=== PATIENT | male | born 1960 | race Caucasian/White ===

== ENCOUNTER 2019-04-12 21:22 | Observation (INO) | payer BC ==
--- NOTE | 2019-04-12 21:46 | ED ---
Syncope HPI - General Chief Complaint: Syncope Stated Complaint: Syncope Time Seen by Provider: 04/12/19 21:27 Source: patient Mode of arrival: EMS - History of Present Illness Initial Comments: This patient is a 58-year-old man who presents to be evaluated after syncopal episode tonight. Patient states that he had been feeling like his usual self today. [place] the [place] and also had a few beers to drink. He had then gone to change his clothes and noticed that when he was walking he felt lightheaded. The patient went and rested and then passed out briefly. He did not have palpitations. He has not had chest pain or dyspnea. The episode was witnessed and there was no tonic-clonic or shaking movements. No postictal period. The patient states he is at his baseline now but does feel a bit thirsty. He did not have any injury. MD Complaint: loss of consciousness -: minutes(s) Prodromal Symptoms: lightheaded -: second(s) Witnessed: yes - by bystander Injuries Sustained Associated with Event: None Current Symptoms: back to baseline History: previous syncopal episode Treatments Prior to Arrival: IV fluids - Related Data Home Medications Medication Instructions Recorded Confirmed ALPRAZolam [Xanax] 0.125 - 0.25 mg PO BID PRN 04/12/19 04/12/19 Acetaminophen Tab [Tylenol Tab] 500 mg PO Q6H PRN 04/12/19 04/12/19 Ibuprofen [Motrin Ib] 200 mg PO Q6H PRN 04/12/19 04/12/19 Multivitamins, Thera [Multivitamin 1 tab PO DAILY 04/12/19 04/12/19 (formulary)] Omeprazole 20 mg PO DAILY 04/12/19 04/12/19 Allergies Allergy/AdvReac Type Severity Reaction Status Date / Time No Known Allergies Allergy Verified 04/12/19 22:09 Review of Systems ROS Statement: Those systems with pertinent positive or pertinent negative responses have been documented in the HPI. ROS Other: All systems not noted in ROS Statement are negative. Constitutional: Denies: fever, weakness Respiratory: Denies: cough, dyspnea Cardiovascular: Reports: syncope. Denies: chest pain, palpitations, edema Gastrointestinal: Denies: abdominal pain, nausea, vomiting Genitourinary: Denies: dysuria, hematuria Musculoskeletal: Denies: back pain Skin: Denies: rash Neurological: Denies: headache, weakness, numbness Past Medical History Additional Past Medical History / Comment(s): vasovagal syndrome History of Any Multi-Drug Resistant Organisms: None Reported Past Surgical History: Cholecystectomy, Tonsillectomy Past Psychological History: Anxiety Smoking Status: Never smoker Past Alcohol Use History: Occasional Past Drug Use History: None Reported General Exam General appearance: alert, in no apparent distress Head exam: Present: atraumatic, normocephalic Eye exam: Present: normal appearance, PERRL, EOMI. Absent: scleral icterus, conjunctival injection, nystagmus ENT exam: Present: mucous membranes dry Neck exam: Present: normal inspection Respiratory exam: Present: normal lung sounds bilaterally. Absent: respiratory distress, wheezes, rales, rhonchi, stridor Cardiovascular Exam: Present: regular rate, normal rhythm, normal heart sounds. Absent: systolic murmur, diastolic murmur, rubs, gallop GI/Abdominal exam: Present: soft. Absent: distended, tenderness, guarding, rebound, rigid Extremities exam: Present: normal inspection, normal capillary refill. Absent: pedal edema, calf tenderness Back exam: Present: normal inspection Neurological exam: Present: alert, oriented X3. Absent: motor sensory deficit Skin exam: Present: warm, dry, intact, normal color. Absent: rash Course Vital Signs 04/12/19 04/12/19 21:27 22:40 Temperature 97.9 F Pulse Rate 80 Pulse Rate [ 84 Sitting] Pulse Rate [ 90 Standing] Pulse Rate [ 86 Supine] Respiratory 18 Rate Blood Pressure 128/90 Blood Pressure 116/74 [Left Arm Supine] Blood Pressure 125/73 [Sitting] Blood Pressure 126/60 [Standing] O2 Sat by Pulse 97 Oximetry EKG Findings - EKG Results: EKG: interpreted by ERMD, sinus rhythm (With sinus arrhythmia, rate 74 bpm), normal axis, normal QRS, normal ST/T Medical Decision Making - Lab Data Result diagrams: 04/12/19 22:15 04/12/19 22:15 Lab Results 04/12/19 04/12/19 04/12/19 Range/Units 22:15 22:15 22:15 WBC 14.4 H (3.8-10.6) k/uL RBC 4.75 (4.30-5.90) m/uL Hgb 14.4 (13.0-17.5) gm/dL Hct 42.0 (39.0-53.0) % MCV 88.5 (80.0-100.0) fL MCH 30.2 (25.0-35.0) pg MCHC 34.2 (31.0-37.0) g/dL RDW 13.0 (11.5-15.5) % Plt Count 223 (150-450) k/uL Neutrophils % 86 % Lymphocytes % 11 % Monocytes % 2 % Eosinophils % 1 % Basophils % 0 % Neutrophils # 12.4 H (1.3-7.7) k/uL Lymphocytes # 1.6 (1.0-4.8) k/uL Monocytes # 0.3 (0-1.0) k/uL Eosinophils # 0.1 (0-0.7) k/uL Basophils # 0.0 (0-0.2) k/uL PT 11.2 (9.0-12.0) sec INR 1.1 (<1.2) APTT 22.1 (22.0-30.0) sec D-Dimer 0.26 (<0.60) mg/L FEU Sodium 140 (137-145) mmol/L Potassium 4.3 (3.5-5.1) mmol/L Chloride 104 (98-107) mmol/L Carbon Dioxide 26 (22-30) mmol/L Anion Gap 10 mmol/L BUN 17 (9-20) mg/dL Creatinine 1.07 (0.66-1.25) mg/dL Est GFR (CKD-EPI)AfAm 88 (>60 ml/min/1.73 sqM) Est GFR (CKD-EPI)NonAf 76 (>60 ml/min/1.73 sqM) Glucose 148 H (74-99) mg/dL Calcium 9.4 (8.4-10.2) mg/dL Total Bilirubin 0.6 (0.2-1.3) mg/dL AST 27 (17-59) U/L ALT 46 (21-72) U/L Alkaline Phosphatase 71 (38-126) U/L Troponin I (0.000-0.034) ng/mL Total Protein 6.8 (6.3-8.2) g/dL Albumin 4.4 (3.5-5.0) g/dL Urine Color Urine Appearance (Clear) Urine pH (5.0-8.0) Ur Specific [place] (1.001-1.035) Urine Protein (Negative) Urine Glucose (UA) (Negative) Urine Ketones (Negative) Urine Blood (Negative) Urine Nitrite (Negative) Urine Bilirubin (Negative) Urine Urobilinogen (<2.0) mg/dL Ur Leukocyte Esterase (Negative) 04/12/19 04/12/19 Range/Units 22:15 23:00 WBC (3.8-10.6) k/uL RBC (4.30-5.90) m/uL Hgb (13.0-17.5) gm/dL Hct (39.0-53.0) % MCV (80.0-100.0) fL MCH (25.0-35.0) pg MCHC (31.0-37.0) g/dL RDW (11.5-15.5) % Plt Count (150-450) k/uL Neutrophils % % Lymphocytes % % Monocytes % % Eosinophils % % Basophils % % Neutrophils # (1.3-7.7) k/uL Lymphocytes # (1.0-4.8) k/uL Monocytes # (0-1.0) k/uL Eosinophils # (0-0.7) k/uL Basophils # (0-0.2) k/uL PT (9.0-12.0) sec INR (<1.2) APTT (22.0-30.0) sec D-Dimer (<0.60) mg/L FEU Sodium (137-145) mmol/L Potassium (3.5-5.1) mmol/L Chloride (98-107) mmol/L Carbon Dioxide (22-30) mmol/L Anion Gap mmol/L BUN (9-20) mg/dL Creatinine (0.66-1.25) mg/dL Est GFR (CKD-EPI)AfAm (>60 ml/min/1.73 sqM) Est GFR (CKD-EPI)NonAf (>60 ml/min/1.73 sqM) Glucose (74-99) mg/dL Calcium (8.4-10.2) mg/dL Total Bilirubin (0.2-1.3) mg/dL AST (17-59) U/L ALT (21-72) U/L Alkaline Phosphatase (38-126) U/L Troponin I 0.027 (0.000-0.034) ng/mL Total Protein (6.3-8.2) g/dL Albumin (3.5-5.0) g/dL Urine Color Yellow Urine Appearance Clear (Clear) Urine pH 6.5 (5.0-8.0) Ur Specific [place] 1.011 (1.001-1.035) Urine Protein Negative (Negative) Urine Glucose (UA) Negative (Negative) Urine Ketones Negative (Negative) Urine Blood Negative (Negative) Urine Nitrite Negative (Negative) Urine Bilirubin Negative (Negative) Urine Urobilinogen <2.0 (<2.0) mg/dL Ur Leukocyte Esterase Negative (Negative) Disposition Clinical Impression: Syncope Disposition: ADMITTED IP TO THIS HOSP Condition: Good Is patient prescribed a controlled substance at d/c from ED?: No Referrals: Osmel Schaeffer MD [Primary Care Provider] - 1-2 days
[2019-04-12] MEDS ORDERED: SODIUM CHLORIDE 0.9% 1,000 ML IV STA (21:58)
[2019-04-12 22:36] LABS: Basophils % (A) 0 %; Eosinophils # (A) 0.1 k/uL (0-0.7); Eosinophils % (A) 1 %; HGB 14.4 gm/dL (13.0-17.5); Lymphocytes # (A) 1.6 k/uL (1.0-4.8); Lymphocytes % (A) 11 %; MCH 30.2 pg (25.0-35.0); MCHC 34.2 g/dL (31.0-37.0); MCV 88.5 fL (80.0-100.0); Mean Platelet Volume 7.9; Monocytes # (A) 0.3 k/uL (0-1.0); Monocytes % (A) 2 %; Neutrophils # (A) 12.4 k/uL (1.3-7.7); Neutrophils % (A) 86 %; Platelet Count 223 k/uL (150-450); RBC 4.75 m/uL (4.30-5.90); WBC 14.4 k/uL (3.8-10.6)
[2019-04-12 22:45] LABS: Albumin 4.4 g/dL (3.5-5.0); Calcium 9.4 mg/dL (8.4-10.2); Potassium 4.3 mmol/L (3.5-5.1); Total Bilirubin 0.6 mg/dL (0.2-1.3); Total Protein 6.8 g/dL (6.3-8.2)
--- NOTE | 2019-04-12 22:48 | XR ---
EXAM: XR Chest, 1 View CLINICAL HISTORY: syncope TECHNIQUE: Frontal view of the chest. COMPARISON: No relevant prior studies available. FINDINGS: Lungs: Unremarkable. No consolidation. Pleural space: Unremarkable. No pneumothorax. Heart: Unremarkable. No cardiomegaly. Mediastinum: Unremarkable. Bones/joints: Unremarkable. IMPRESSION: Unremarkable single view the chest
[2019-04-12 22:59] LABS: D-Dimer 0.26 mg/L FEU (<0.60); INR 1.1 (<1.2); Partial Thromboplastin Time 22.1 sec (22.0-30.0); Prothrombin Time 11.2 sec (9.0-12.0)
[2019-04-12 23:45] LABS: Appearance,Urine Clear (Clear); Bilirubin,Urine Negative (Negative); Blood,Urine Negative (Negative); Color,Urine Yellow; Glucose,Urine (UA) Negative (Negative); Ketones,Urine Negative (Negative); Leukocyte Esterase,Urine Negative (Negative); Nitrite,Urine Negative (Negative); PH, Urine 6.5 (5.0-8.0); Protein,Urine Negative (Negative); Specific Gravity,Urine 1.011 (1.001-1.035); Urobilinogen,Urine <2.0 mg/dL (<2.0)
[2019-04-13] MEDS ORDERED: NITROGLYCERIN SL TABS 0.4 MG TAB SUBLINGUAL PRN (01:05)
[2019-04-13] MEDS ORDERED: ALPRAZolam 0.25 MG TAB PO PRN (01:37)
--- NOTE | 2019-04-13 11:39 | CT ---
EXAMINATION TYPE: CT brain wo/w con DATE OF EXAM: 04/13/2019 COMPARISON: NONE HISTORY: Syncopal Episode CT DLP: 2150.4 mGycm Automated exposure control for dose reduction was used. FINDINGS: Central structures are midline. There is no evidence of hydrocephalus. No acute focal lesion, mass ef fect or midline shift is seen. I do not see evidence of intracranial blood. Following intravenous administration of contrast I do not see evidence of abnormal enhancement. Visualized portions of the paranasal sinuses and mastoids are clear. IMPRESSION: NO ACUTE INTRACRANIAL ABNORMALITY.
[2019-04-13] MEDS ORDERED: SODIUM CHLORIDE 0.9% 1,000 ML IV SCH (13:15)
--- NOTE | 2019-04-13 13:44 | US ---
EXAMINATION TYPE: US carotid duplex BILAT DATE OF EXAM: 04/13/2019 COMPARISON: NONE CLINICAL HISTORY: LEFT carotid bruit. syncope yesterday x 2, no h/o stroke EXAM MEASUREMENTS: RIGHT: Peak Systolic Velocity (PSV) cm/sec ----- Right CCA: 99.3 ----- Right ICA: 97.9 ----- Right ECA: 108.4 ICA/CCA ratio: 1.0 RIGHT: End Diastole cm/sec ----- Right CCA: 28.1 ----- Right ICA: 26.7 ----- Right ECA: 11.7 LEFT: Peak Systolic Velocity (PSV) cm/sec ----- Left CCA: 113.4 ----- Left ICA: 106.9 ----- Left ECA: 82.3 ICA/CCA ratio: 0.9 LEFT: End Diastole cm/sec ----- Left CCA: 29.3 ----- Left ICA: 26.7 ----- Left ECA: 20.2 VERTEBRALS (direction of flow): Right Vertebral: Antegrade Left Vertebral: Antegrade Rhythm: Mild homogeneous plaque seen with no significant stenosis IMPRESSION: I DO NOT SEE EVIDENCE OF A HEMODYNAMICALLY SIGNIFICANT STENOSIS IN EITHER CAROTID SYSTEM. Criteria for Assigning % of Stenosis / Diameter reduction (Estimation based on the indirect measurements of the internal carotid artery velocities (ICA PSV). 1. Normal (no stenosis)=ICA PSV < 125 cm/s: ratio < 2.0: ICA EDV<40 cm/s. 2. Less than 50% stenosis=ICA PSV < 125 cm/s: ratio < 2.0: ICA EDV<40 cm/s. 3. 50 to 69% stenosis=ICA PSV of 125 to 230 cm/s: ration 2.0 ? 4.0: ICA EDV 40-100 cm/s. 4. Greater than 70% stenosis to near occlusion= ICA PSV > 230 cm/s: ratio > 4.0: ICA EDV > 100 cm/s. 5. Near occlusion= ICA PSV velocities may be low or undetectable: variable ratio and ICA EDV. 6. Total occlusion=unable to detect flow.
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
--- NOTE | 2019-04-13 15:38 | P.HPIM ---
History of Present Illness H&P Date: 04/13/19 This is a 58-year-old gentleman who comes in secondary to syncope. He has underlying history of generalized anxiety disorder, and prior vasovagal syndrome, was doing well until his ER visit presenting with acute syncope. [place] 7 [place] that [place], he has 3 beers for Gatorade, and along with caffeine supplements. He didn't have anything to eat from the morning until late in the afternoon where he had a granola bar. Patient did not have any history of hypoglycemic events in the past, she subsequently went home, and carried few chairs and articles inside the house. Patient thereafter complained of being lightheaded and feeling well, he went upstairs and subsequently passed out for approximately 30 seconds prior to this he felt hot and cold and clammy dizzy no nausea no fever, patient did not have any tonic-clonic episodes, and no focal neurologic deficits upon awakening. Patient had prior event somewhere of 2017, when he was continuing with the again with 3 beers, and subsequently was seen in emergency room with workup that included CTA of the brain and carotid Dopplers. Patient did not have any history of seizures, and no focal deficits also that time. This would be his second episode in his entire life. Patient denies any new diuretics, no antihistamines No new drugs prior to admission including antihypertensive or BPH medications In emergency room, EKG shows normal sinus rhythm with sinus arrhythmia possible LAE heart rate 74, no CAT scan of the brain was done at his ER visit, chest x- ray was normal. Blood sugars 148, WBC count of 14.4, INR of 1.1, normal liver function test urinalysis is negative. Patient was admitted with consultations to cardiology, there is no neurology sonogram technician this weekend for the hospital, neela barone is aware that there would be no neurology consultation during this admission and can be done as an outpatient Review of Systems Constitutional: Reports as per HPI, Denies anorexia, Denies chills, Denies chronic headaches, Denies chronic pain, Denies daytime sleepiness, Denies fatigue, Denies fever, Denies lethargy, Denies malaise, Denies night sweats, D enies poor appetite, Denies sweats, Denies weakness, Denies weight gain, Denies weight loss Ears, nose, mouth and throat: Reports as per HPI, Denies ant. neck pain, Denies bleeding gums, Denies dental pain, Denies dysphagia, Denies epistaxis, Denies headache, Denies hoarseness, Denies mouth pain, Denies nasal congestion, Denies nasal discharge, Denies neck fullness/pressure, Denies neck lump, Denies nose pain, Denies odynophagia, Denies post-nasal drip, Denies sinus pain, Denies sinus pressure, Denies swelling in mouth, Denies swelling in throat, Denies sore throat, Denies vertigo, Denies voice changes Cardiovascular: Reports as per HPI, Reports lightheadedness, Reports palpitations, Denies chest pain, Denies claudication, Denies decreased exercise tolerance, Denies dyspnea on exertion, Denies edema, Denies high blood pressure, Denies irregular heart beat, Denies leg edema, Denies orthopnea, Denies paroxysmal nocturnal dyspnea, Denies phlebitis, Denies rapid heart beat, Denies shortness of breath, Denies syncope Respiratory: Reports as per HPI, Denies congestion, Denies cough, Denies cough with sputum, Denies dyspnea, Denies excessive sputum, Denies hemoptysis, Denies home oxygen, Denies pain, Denies pain on inspiration, Denies pleurisy, Denies respiratory infections, Denies sleep apnea, Denies snoring, Denies wheezing Gastrointestinal: Reports as per HPI, Denies abdominal pain, Denies belching, Denies bloating, Denies BRBPR, Denies change in bowel habits, Denies coffee ground emesis, Denies constipation, Denies diarrhea, Denies dyspepsia, Denies early satiety, Denies excessive gas, Denies heartburn, Denies hematemesis, Denies hematochezia, Denies indigestion, Denies jaundice, Denies lactose intolerance, Denies loss of appetite, Denies melena, Denies nausea, Denies vomi ting Genitourinary: Reports as per HPI Musculoskeletal: Reports as per HPI Integumentary: Reports as per HPI, Denies acne, Denies boils, Denies brittle nails, Denies change in hair/nails, Denies color changes, Denies darkening of skin, Denies depigmentation, Denies dryness, Denies foot/leg ulcers, Denies growths, Denies hirsutism, Denies lesions, Denies onychomycosis, Denies pruritus, Denies rash, Denies sores, Denies striae, Denies unusual bruising, Denies wounds Neurological: Reports as per HPI, Reports syncope Psychiatric: Reports as per HPI, Denies anhedonia, Denies anxiety, Denies anxiety attacks, Denies change in appetite, Denies change in libido, Denies change in sleep habits, Denies confusion, Denies depression, Denies difficulty concentrating, Denies disorientation, Denies hallucinations, Denies hopelessness, Denies hypersomnia, Denies insomnia, Denies irritability, Denies memory loss, Denies mood swings, Denies paranoia, Denies sadness/tearfulness, De nies sleep disturbances, Denies suicidal ideation Endocrine: Reports as per HPI Hematologic/Lymphatic: Reports as per HPI Allergic/Immunologic: Reports as per HPI Past Medical History Past Medical History: No Reported History, Syncope Additional Past Medical History / Comment(s): vasovagal syndrome History of Any Multi-Drug Resistant Organisms: None Reported Past Surgical History: Cholecystectomy, Tonsillectomy Past Anesthesia/Blood Transfusion Reactions: No Reported Reaction Past Psychological History: Anxiety Smoking Status: Never smoker Past Alcohol Use History: Occasional Past Drug Use History: None Reported - Past Family History Sister(s) Family Medical History: Cancer (thyroid) Brother(s) Family Medical History: No Reported History Father Family Medical History: No Reported History Mother Family Medical History: No Reported History Daughter(s) Family Medical History: No Reported History Son(s) Family Medical History: No Reported History Medications and Allergies Home Medications Medication Instructions Recorded Confirmed Type ALPRAZolam [Xanax] 0.125 - 0.25 mg PO BID PRN 04/12/19 04/12/19 History Acetaminophen Tab [Tylenol Tab] 500 mg PO Q6H PRN 04/12/19 04/12/19 History Ibuprofen [Motrin Ib] 200 mg PO Q6H PRN 04/12/19 04/12/19 History Multivitamins, Thera [Multivitamin 1 tab PO DAILY 04/12/19 04/12/19 History (formulary)] Omeprazole 20 mg PO DAILY 04/12/19 04/12/19 History Allergies Allergy/AdvReac Type Severity Reaction Status Date / Time No Known Allergies Allergy Verified 04/12/19 22:09 Physical Exam Vitals: Vital Signs Temp Pulse Pulse Pulse Pulse Pulse Resp 04/13/19 11:47 98.1 F 58 L 18 04/13/19 07:05 98.6 F 73 18 04/13/19 02:23 85 15 04/13/19 02:03 98.5 F 86 15 04/13/19 01:15 97.9 F 87 16 04/12/19 22:40 84 90 86 04/12/19 21:27 97.9 F 80 18 BP BP BP BP BP Pulse Ox 04/13/19 11:47 113/73 96 04/13/19 07:05 117/70 98 04/13/19 02:23 04/13/19 02:03 121/70 98 04/13/19 01:15 109/65 99 04/12/19 22:40 116/74 125/73 126/60 04/12/19 21:27 128/90 97 Intake and Output 04/13/19 04/13/19 04/13/19 06:59 14:59 22:59 Intake Total 680 Balance 680 Intake: Oral 480 Other 200 Other: Voiding Method Toilet Toilet Urinal Urinal # Voids 1 - Constitutional General appearance: cooperative, mild distress - EENT Eyes: anicteric sclerae, PERRLA, dentition normal, normal appearance ENT: NA/AT, normal oropharynx - Neck Neck: normal ROM - Respiratory Respiratory: bilateral: CTA, negative: diminished, dullness, rales, rhonchi - Cardiovascular Rhythm: regular Heart sounds: normal: S1, S2 Abnormal Heart Sounds: no systolic murmur, no diastolic murmur, no rub, no S3 Gallop, no S4 Gallop, no click, no other - Gastrointestinal General gastrointestinal: normal bowel sounds, soft - Integumentary Integumentary: normal, normal turgor - Neurologic Neurologic: CNII-XII intact - Musculoskeletal Musculoskeletal: gait normal, strength equal bilaterally - Psychiatric Psychiatric: A&O x's 3, appropriate affect, intact judgment & insight Results CBC & Chem 7: 04/12/19 22:15 04/12/19 22:15 Labs: Abnormal Lab Results - Last 24 Hours (Table) 04/12/19 04/12/19 04/13/19 Range/Units 22:15 22:15 04:18 WBC 14.4 H (3.8-10.6) k/uL Neutrophils # 12.4 H (1.3-7.7) k/uL Glucose 148 H (74-99) mg/dL Troponin I 0.047 H* (0.000-0.034) ng/mL Laboratory Results WBC 14.4 k/uL (3.8-10.6) H 04/12/19 22:15 RBC 4.75 m/uL (4.30-5.90) 04/12/19 22:15 Hgb 14.4 gm/dL (13.0-17.5) 04/12/19 22:15 Hct 42.0 % (39.0-53.0) 04/12/19 22:15 MCV 88.5 fL (80.0-100.0) 04/12/19 22:15 MCH 30.2 pg (25.0-35.0) 04/12/19 22:15 MCHC 34.2 g/dL (31.0-37.0) 04/12/19 22:15 RDW 13.0 % (11.5-15.5) 04/12/19 22:15 Plt Count 223 k/uL (150-450) 04/12/19 22:15 Neutrophils % 86 % 04/12/19 22:15 Lymphocytes % 11 % 04/12/19 22:15 Monocytes % 2 % 04/12/19 22:15 Eosinophils % 1 % 04/12/19 22:15 Basophils % 0 % 04/12/19 22:15 Neutrophils # 12.4 k/uL (1.3-7.7) H 04/12/19 22:15 Lymphocytes # 1.6 k/uL (1.0-4.8) 04/12/19 22:15 Monocytes # 0.3 k/uL (0-1.0) 04/12/19 22:15 Eosinophils # 0.1 k/uL (0-0.7) 04/12/19 22:15 Basophils # 0.0 k/uL (0-0.2) 04/12/19 22:15 PT 11.2 sec (9.0-12.0) 04/12/19 22:15 INR 1.1 (<1.2) 04/12/19 22:15 APTT 22.1 sec (22.0-30.0) 04/12/19 22:15 D-Dimer 0.26 mg/L FEU (<0.60) 04/12/19 22:15 Sodium 140 mmol/L (137-145) 04/12/19 22:15 Potassium 4.3 mmol/L (3.5-5.1) 04/12/19 22:15 Chloride 104 mmol/L (98-107) 04/12/19 22:15 Carbon Dioxide 26 mmol/L (22-30) 04/12/19 22:15 Anion Gap 10 mmol/L 04/12/19 22:15 BUN 17 mg/dL (9-20) 04/12/19 22:15 Creatinine 1.07 mg/dL (0.66-1.25) 04/12/19 22:15 Est GFR (CKD-EPI)AfAm 88 (>60 ml/min/1.73 sqM) 04/12/19 22:15 Est GFR (CKD-EPI)NonAf 76 (>60 ml/min/1.73 sqM) 04/12/19 22:15 Glucose 148 mg/dL (74-99) H 04/12/19 22:15 Calcium 9.4 mg/dL (8.4-10.2) 04/12/19 22:15 Total Bilirubin 0.6 mg/dL (0.2-1.3) 04/12/19 22:15 AST 27 U/L (17-59) 04/12/19 22:15 ALT 46 U/L (21-72) 04/12/19 22:15 Alkaline Phosphatase 71 U/L (38-126) 04/12/19 22:15 Troponin I 0.025 ng/mL (0.000-0.034) 04/13/19 10:25 Total Protein 6.8 g/dL (6.3-8.2) 04/12/19 22:15 Albumin 4.4 g/dL (3.5-5.0) 04/12/19 22:15 Urine Color Yellow 04/12/19 23:00 Urine Appearance Clear (Clear) 04/12/19 23:00 Urine pH 6.5 (5.0-8.0) 04/12/19 23:00 Ur Specific [place] 1.011 (1.001-1.035) 04/12/19 23:00 Urine Protein Negative (Negative) 04/12/19 23:00 Urine Glucose (UA) Negative (Negative) 04/12/19 23:00 Urine Ketones Negative (Negative) 04/12/19 23:00 Urine Blood Negative (Negative) 04/12/19 23:00 Urine Nitrite Negative (Negative) 04/12/19 23:00 Urine Bilirubin Negative (Negative) 04/12/19 23:00 Urine Urobilinogen <2.0 mg/dL (<2.0) 04/12/19 23:00 Ur Leukocyte Esterase Negative (Negative) 04/12/19 23:00 Thrombosis Risk Factor Assmnt - Choose All That Apply Each Factor Represents 1 point: Age 41-60 years, Obesity (BMI >25) Other Risk Factors: No Thrombosis Risk Factor Assessment Total Risk Factor Score: 2 Thrombosis Risk Factor Assessment Level: Low Risk Assessment and Plan Plan: 1. Syncope suspect heat exhaustion, with similar episodes in the past that included prolonged outdoor exposure, and alcohol intake. Patient will be hydrated, nuclear monitoring technician is in place, cardiology has been consulted, he would discontinue caffeine intake, and minimize alcohol exposure during this event, and avoid outdoor temperatures about 85 physical examination is unremarkable, no neurologic deficits, no carotid bruit, no history of seizures, EEG of the brain to be done, patient can seen neurology as an outpatient for second opinion however this is less likely needed. Patient can also invest in cooling towels, as well as investing in a Wet -Bulb Thermometer monitor as a guide to outdoor activity exposure 2. Episode of palpitations, patient is taking caffeine supplementation and caffeine drinks, advised to discontinue this products and minimize exposure, patient had been worked up in the past, except for an event monitor, patient did not have any stress test in the past. 2. Situational anxiety related to work, patient has when necessary Xanax 4. Elevated troponin, possibly related to heat exhaustion, EKG failed to reveal any acute ST changes 5. Possible impaired random blood sugars, hemoglobins A1c will be obtained could be done as an outpatient Accu-Cheks while in the hospital 6. Prior history of of syncope in the past, he was diagnosed to have vasovagal episode, however the history is more consistent to Exertional Heat Stroke syndrome last summer while canoeing outdoors
[2019-04-14 00:34] LABS: Cholesterol 125 mg/dL (<200); HDL Cholesterol 51 mg/dL (40-60); LDL Cholesterol,Calculated 48 mg/dL (0-99); Triglycerides 130 mg/dL (<150)
[2019-04-14] MEDS ORDERED: ASPIRIN 325 MG TAB PO SCH (09:00)
[2019-04-14 09:15] VITALS: RESP 16
--- NOTE | 2019-04-14 10:47 | P.PN ---
Subjective This is a pleasant 58-year-old male past medical history significant for anxiety. He is being evaluated secondary to a syncopal episode. He is seen and examined in no acute distress. He denies chest pain, shortness of breath, dizziness or palpitations. He has no further episodes of syncope since arriving at the the hospital. Blood pressure 119/76 heart rate 66 afebrile and maintaining oxygen saturation on room air. Bilateral carotid doppler negative for significant stenosis. GENERAL: Well-appearing, well-nourished and in no acute distress. NECK: Supple without JVD or thyromegaly. LUNGS: Breath sounds clear to auscultation bilaterally. Respiration equal and unlabored. No wheezes, rales or rhonchi. HEART: Regular rate and rhythm without murmurs, rubs or gallops. S1 and S2 heard. EXTREMITIES: Normal range of motion, no edema. No clubbing or cyanosis. Peripheral pulses intact. ASSESSMENT Possible syncope Leukocytosis Palpitations Mild troponin leak of unclear etiology with no evidence of angina History of anxiety PLAN Proceed with stress echocardiogram as recommended per Dr. Erickson. If stress test is normal we will apply 30 day event monitor for ongoing evaluation of possible arrhythmia. Echocardiogram has been ordered and will be reviewed. Follow-up in the office with Dr. Erickson in 6 weeks. Nurse Practitioner note has been reviewed, I agree with a documented findings and plan of care. Patient was seen and examined. Objective - Vital Signs Vital signs: Vital Signs Temp 98.3 F 04/14/19 08:00 Pulse 66 04/14/19 08:00 Resp 16 04/14/19 08:00 BP 119/76 04/14/19 08:00 Pulse Ox 99 04/14/19 08:12 Intake & Output 04/13/19 04/14/19 04/14/19 18:59 06:59 18:59 Intake Total 680 Balance 680 Intake: Oral 480 Other 200 Other: Voiding Method Toilet Urinal # Voids 1 - Labs CBC & Chem 7: 04/12/19 22:15 04/12/19 22:15
[2019-04-14 11:44] VITALS: BP 131/84; PULSE 77; TEMP 97
--- NOTE | 2019-04-14 11:53 | ECHOF ---
Referral Reason:syncope MEASUREMENTS -------- HEIGHT: 180.3 cm WEIGHT: 103.4 kg BP: 120/79 RVIDd: 2.0 cm (< 3.3) IVSd: 1.1 cm (0.6 - 1.1) LVIDd: 4.2 cm (3.9 - 5.3) LVPWd: 1.3 cm (0.6 - 1.1) IVSs: 1.9 cm LVIDs: 2.0 cm LVPWs: 2.1 cm LAESV Index (A-L): 34.29 ml/m Ao Diam: 3.2 cm (2.0 - 3.7) AV Cusp: 1.9 cm (1.5 - 2.6) LA Diam: 2.9 cm (2.7 - 3.8) MV EXCURSION: 14.230 mm (> 18.000) MV EF SLOPE: 125 mm/s (70 - 150) EPSS: 0.7 cm MV E Paxton: 0.88 m/s MV DecT: 211 ms MV A Paxton: 0.84 m/s MV E/A Ratio: 1.05 RAP: 5.00 mmHg RVSP: 39.61 mmHg FINDINGS -------- Sinus rhythm. This was a technically difficult study with suboptimal views. The left ventricular size is normal. There is mild concentric left ventricular hypertrophy. Overa ll left ventricular systolic function is normal with, an EF between 55 - 60 %. Increased LAP Grade 2 Diastolic Dysfunction. The right ventricle is normal in size. LA is midly dilated 29-33ml/m2. The right atrial size is normal. The aortic valve is trileaflet and appears structurally normal. The mitral valve is normal. Mild mitral regurgitation is present. Mild tricuspid regurgitation present. There is mild pulmonary hypertension. The right ventricular systolic pressure, as measured by Doppler, is 39.61mmHg. Pulmonic valve appears structurally normal. The aortic root size is normal. IVC Not well visulized. There is no pericardial effusion. Lumason used CONCLUSIONS -------- 1. Sinus rhythm. 2. This was a technically difficult study with suboptimal views. 3. The left ventricular size is normal. 4. There is mild concentric left ventricular hypertrophy. 5. Overall left ventricular systolic function is normal with, an EF between 55 - 60 %. 6. Increased LAP Grade 2 Diastolic Dysfunction. 7. The right ventricle is normal in size. 8. LA is midly dilated 29-33ml/m2. 9. The right atrial size is normal. 10. Lumason used 11. The aortic valve is trileaflet and appears structurally normal. 12. The mitral valve is normal. 13. Mild mitral regurgitation is present. 14. Mild tricuspid regurgitation present. 15. There is mild pulmonary hypertension. 16. The right ventricular systolic pressure, as measured by Doppler, is 39.61mmHg. 17. Pulmonic valve appears structurally normal. 18. The aortic root size is normal. 19. IVC Not well visulized. 20. There is no pericardial effusion. FISHERIES MANAGEMENT BIOLOGIST: Hoa Cloud RDCS
--- NOTE | 2019-04-14 12:39 | ECHOS ---
STRESS ECHOCARDIOGRAM INDICATIONS: Syncope MEDICATIONS: Xanax BASELINE HEART RATE: 69 BASELINE BLOOD PRESSURE: 150/66 MAXIMUM HEART RATE: 156 MAXIMUM BLOOD PRESSURE: 190/69 85% MPHR: 137 100% MPHR: 161 METS: 8.5 MAXIMUM STAGE REACHED: 3 TOTAL EXERCISE TIME: 7:00 CLINICAL INFORMATION: Patient was exercised for a total period of 7 minutes, a peak heart rate of 156 was achieved. Maximum blood pressure 190/69 mmHg was noted. Resting EKG shows normal sinus rhythm with normal MO interval and QRS duration and normal ST-T waves. No ST-segment depression suggestive of ischemia is noted. The baseline echocardiographic images reveals normal left ventricular chamber size with normal left ventricular systolic function in the immediate postexercise period. Normal increase in the wall thickness and contractility is noted. FINAL IMPRESSION: This stress echocardiographic study is negative for stress-induced ischemia EKG portion of the stress test is not suggestive of ischemia. Patient's exercise tolerance is normal. MMODL / IJN: [id number] /
[2019-04-14 12:41] LABS: HCT 42.5 % (39.0-53.0); MCV 90.8 fL (80.0-100.0); Mean Platelet Volume 8.4; Platelet Count 207 k/uL (150-450); RBC 4.67 m/uL (4.30-5.90); RDW 14.6 % (11.5-15.5); WBC 8.2 k/uL (3.8-10.6)
--- NOTE | 2019-04-14 17:14 | EEG ---
ELECTROENCEPHALOGRAM REPORT DATE OF SERVICE: 04/14/2019. PREAMBLE: This is a 58 -year-old white male who had a 30-second episode of loss of consciousness after feeling lightheaded and not feeling well. The study is performed to rule out epileptiform activity. CURRENT MEDICATIONS: Aspirin, Xanax, Motrin. RECORDING: A routine 21 channel awake digital EEG recording was accomplished utilizing 10- 20 international electrode placement system. No sedation was given prior to the beginning of this recording. FINDINGS: At the beginning of this recording, there is a symmetric alpha rhythm that attenuates on eye opening and returns upon eye closure. There are scattered EMG artifacts that correspond to patient's facial movements. There are also episodic eye blink artifacts. Photic stimulation elicits a symmetric driving response. Hyperventilation is not performed in this recording. As the tracing progresses, there is some slowing of the background into the theta range. No definitive sleep architecture is seen. There is no background asymmetry, ictal, or intraictal patterns appreciated. IMPRESSION: This is a normal awake/drowsy electroencephalogram without background asymmetry or epileptiform discharges. Clinical correlation is advised. MMODL / IJN: [id number] / DANIEL
--- NOTE | 2019-04-15 15:40 | P.DS ---
Providers Date of admission: 04/13/19 01:05 Expected date of discharge: 04/14/19 Attending physician: Mandy King Consults: 04/13/19 01:05 Consult Physician Routine Consulting Provider: Lars Solorio Consult Reason/Comments: syncope Do you want consulting provider notified?: Yes Primary care physician: [facility] Course: This is a 58-year-old gentleman who comes in secondary to syncope. He has underlying history of generalized anxiety disorder, and prior vasovagal syndrome, was doing well until his ER visit presenting with acute syncope. [place] 7 [place], he has 3 beers for Gatorade, and along with caffeine supplements. He didn't have anything to eat from the morning until late in the afternoon where he had a granola bar. Patient did not have any history of hypoglycemic events in the past, she subsequently went home, and carried few chairs and articles inside the house. Patient thereafter complained of being lightheaded and feeling well, he went upstairs and subsequently passed out for approximately 30 seconds prior to this he felt hot and cold and clammy dizzy no nausea no fever, patient did not have any tonic-clonic episodes, and no focal neurologic deficits upon awakening. Patient had prior event somewhere of 2018, when he was continuing with the again with 3 beers, and subsequently was seen in emergency room with workup that included CTA of the brain and carotid Dopplers. Patient did not have any history of seizures, and no focal deficits also that time. This would be his second episode in his entire life. Patient denies any new diuretics, no antihistamines No new drugs prior to admission including antihypertensive or BPH medications In emergency room, EKG shows normal sinus rhythm with sinus arrhythmia possible LAE heart rate 74, no CAT scan of the brain was done at his ER visit, chest x- ray was normal. Blood sugars 148, WBC count of 14.4, INR of 1.1, normal liver function test urinalysis is negative. Patient was admitted with consultations to cardiology, there is no neurology workers compensation claims examiner this weekend for the hospital, family is aware that there would be no neurology consultation during this admission and can be done as an outpatient 04/14: Patient underwent stress echocardiogram. Cardiology is recommending a 30 day event monitor for possible arrhythmias and follow-up with Dr. Erickson in the office in 6 weeks. Echocardiogram reveals EF of 55-60% with mild concentric left ventricular hypertrophy, mild mitral regurgitation, mild tricuspid regurgitation, mild pulmonary hypertension. Carotid duplex showed no hemodynamically significant stenosis. EEG was a normal study. Patient states that both his syncopal episodes happened when he was in the heat. He has been instructed to obtain a wet bulb monitor and cooling towel. Patient will be discharged home today in stable condition. Discharge diagnoses: 1. Syncope suspect heat exhaustion 2. Episode of palpitations 2. Situational anxiety related to work 4. Elevated troponin, possibly related to heat exhaustion 5. Possible impaired random blood sugars 6. 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 Camila Gifford nurse practitioner acting as scribe for signing physician. Patient Condition at Discharge: Good Plan - Discharge Summary Discharge Rx Participant: No New Discharge Prescriptions: No Action Multivitamins, Thera [Multivitamin (formulary)] 1 tab PO DAILY Acetaminophen Tab [Tylenol Tab] 500 mg PO Q6H PRN PRN Reason: Pain ALPRAZolam [Xanax] 0.125 - 0.25 mg PO BID PRN PRN Reason: Anxiety Omeprazole 20 mg PO DAILY Ibuprofen [Motrin Ib] 200 mg PO Q6H PRN PRN Reason: Pain Discharge Medication List ALPRAZolam [Xanax] 0.125 - 0.25 mg PO BID PRN 04/12/19 [History] Acetaminophen Tab [Tylenol Tab] 500 mg PO Q6H PRN 04/12/19 [History] Ibuprofen [Motrin Ib] 200 mg PO Q6H PRN 04/12/19 [History] Multivitamins, Thera [Multivitamin (formulary)] 1 tab PO DAILY 04/12/19 [History] Omeprazole 20 mg PO DAILY 04/12/19 [History] Follow up Appointment(s)/Referral(s): Dean Erickson MD [STAFF PHYSICIAN] - 6 Weeks (pt is to call patient with date and time of 6 week follow up appointment regarding hospital stay of syncope.) Osmel Schaeffer MD [Primary Care Provider] - 1 Week (pt states he will call office to schedule follow up appointment.) Patient Instructions/Handouts: Syncope (DC) Activity/Diet/Wound Care/Special Instructions: Obtain Wet Bulb Monitor and Cooling Towel Inquire with Dr. Schaeffer about AAA screening. [employer] "Sleep" Discharge Disposition: HOME SELF-CARE
== END 2019-04-14 14:50 | disposition home or self-care (01) ==
LOC: EC 21:22 → 1SOBS 04-13 01:05
PROVIDERS: ADMIT Family Medicine; ATTEND Family Medicine
DX: R55 Syncope and collapse (principal); F41.1 Generalized anxiety disorder; R00.2 Palpitations; R77.8 Other specified abnormalities of plasma proteins; Z90.49 Acquired absence of other specified parts of digestive tract; Z80.8 Family history of malignant neoplasm of other organs or systems; Z79.899 Other long term (current) drug therapy; E66.9 Obesity, unspecified; Z68.31 Body mass index [BMI] 31.0-31.9, adult; D72.829 Elevated white blood cell count, unspecified
CPT/HCPCS: 96360; 99285; 36415; 95816; 93005; 93306; 93270; 93351; 85379; 80061; 80053; 84484 ×2; 85025; 85027; 85610; 85730; 81003; 71045; 93880; 70470; G0378 ×2; Q9950; Q9967

== ENCOUNTER → 2019-05-09 | Outpatient (CLI) | payer BC ==
--- NOTE | 2019-05-09 11:23 | US ---
EXAMINATION TYPE: US duplex aorta DATE OF EXAM: 05/09/2019 COMPARISON: NONE CLINICAL HISTORY: Z13.6 SCREEN FOR CARDIOVASCULAR DISORDERS. Family Hx AAA, Pt c/o heat stroke, dehyd ration. EXAM MEASUREMENTS: Abdominal Aorta: Proximal: 2.5 x 2.3 cm Mid: 2.3 x 2.1 cm Distal: 1.7 x 1.7 cm Bifurcation: 1.0 cm 1.2 cm No evidence of AAA IMPRESSION: No sonographic evidence of abdominal aortic aneurysm within the visualized portions of th e abdominal aorta.
== END | disposition home or self-care (01) ==
LOC: RADUSWWP 10:56
PROVIDERS: ATTEND Internal Medicine Geriatric Medicine
DX: Z13.6 Encounter for screening for cardiovascular disorders (principal)
CPT/HCPCS: 93979

== ENCOUNTER 2019-06-15 11:26 | Emergency (ER) | payer BC ==
[2019-06-15 11:39] VITALS: BP 129/84; PULSE 76; RESP 18; TEMP 97.9
[2019-06-15] MEDS ORDERED: CEPHALEXIN 500MG STARTER PACK 4 CAP BTL PO STA (11:54)
[2019-06-15] MEDS ORDERED: SULFAMETH-TMP DS STARTER PACK 2 TAB BTL PO STA (11:54)
--- NOTE | 2019-06-15 12:08 | ED ---
General Adult HPI - General Chief complaint: Skin/Abscess/Foreign Body Stated complaint: Infection in arm Time Seen by Provider: 06/15/19 11:29 Source: patient, RN notes reviewed Mode of arrival: ambulatory - History of Present Illness Initial comments: 58-year-old male with a past medical history of vasovagal syndrome presents to the emergency department for a chief complaint of possible infection on the right arm. Patient states that a week ago he was helping his son clean up his yard. States he was working with thrush and different trees and leaves. 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 States it looks like blisters. States he also has a small area on his left forearm. Patient states that he has been putting calamine lotion on this as well as a steroid cream. However yesterday started to develop redness around this area and today he noticed a small area of streaking up his right arm. States he is concerned he may have a history of MRSA so wanted to make sure he got antibiotics this weekend. States he would have followed up with his doctor if it was a weekday.Patient has no other complaints at this time including shortness of breath, chest pain, abdominal pain, nausea or vomiting, headache, or visual changes. - Related Data Home Medications Medication Instructions Recorded Confirmed ALPRAZolam [Xanax] 0.125 - 0.25 mg PO BID PRN 04/12/19 04/12/19 Acetaminophen Tab [Tylenol Tab] 500 mg PO Q6H PRN 04/12/19 04/12/19 Ibuprofen [Motrin Ib] 200 mg PO Q6H PRN 04/12/19 04/12/19 Multivitamins, Thera [Multivitamin 1 tab PO DAILY 04/12/19 04/12/19 (formulary)] Omeprazole 20 mg PO DAILY 04/12/19 04/12/19 Allergies Allergy/AdvReac Type Severity Reaction Status Date / Time No Known Allergies Allergy Verified 04/12/19 22:09 Review of Systems ROS Statement: Those systems with pertinent positive or pertinent negative responses have been documented in the HPI. ROS Other: All systems not noted in ROS Statement are negative. Past Medical History Past Medical History: No Reported History, Syncope Additional Past Medical History / Comment(s): vasovagal syndrome History of Any Multi-Drug Resistant Organisms: None Reported Past Surgical History: Cholecystectomy, Tonsillectomy Past Anesthesia/Blood Transfusion Reactions: No Reported Reaction Past Psychological History: No Psychological Hx Reported Smoking Status: Never smoker Past Alcohol Use History: Occasional Past Drug Use History: None Reported - Past Family History Sister(s) Family Medical History: Cancer (thyroid) Brother(s) Family Medical History: No Reported History Father Family Medical History: No Reported History Mother Family Medical History: No Reported History Daughter(s) Family Medical History: No Reported History Son(s) Family Medical History: No Reported History General Exam General appearance: alert, in no apparent distress Head exam: Present: atraumatic, normocephalic, normal inspection Eye exam: Present: normal appearance, PERRL, EOMI. Absent: scleral icterus, conjunctival injection, periorbital swelling ENT exam: Present: normal exam, mucous membranes moist Neck exam: Present: normal inspection, full ROM. Absent: tenderness, meningismus, lymphadenopathy Respiratory exam: Present: normal lung sounds bilaterally. Absent: respiratory distress, wheezes, rales, rhonchi, stridor Cardiovascular Exam: Present: regular rate, normal rhythm, normal heart sounds. Absent: systolic murmur, diastolic murmur, rubs, gallop, clicks Extremities exam: Present: full ROM (Full range motion of all digits in the right and left hand.), normal capillary refill (Christopher refill seizing, radial pulses 2+ and equal bilaterally.), other (Patient has 2 small patches of erythematous vesicular lesion on the right inner distal forearm. These are about 1 cm x 1 cm and 2 cm x 2 cm respectively. Patient does have some minimal erythema surrounding this area. There is about 4 cm of streaking from this area up the inner forearm. Patient also has a very small 1 cm x 1 cm erythematous vesicular lesion on the left forearm as well however no surrounding redness or streaking in this area.). Absent: joint swelling (No edema noted of the arms or hands.) Course Vital Signs 06/15/19 11:29 Temperature 97.9 F Pulse Rate 76 Respiratory 18 Rate Blood Pressure 129/84 O2 Sat by Pulse 97 Oximetry Medical Decision Making - Medical Decision Making 58-year-old male presents to the emergency department for a chief complaint of possible infection of the right arm. Patient has a patch of erythema noted to the right distal forearm. States that he was working outside last week when he felt a packing machine can feeder his right arm and since that time he has had mild vesicular rash from this area. This is consistent with an atopic dermatitis from possible poison sadiq as patient was working outside. However is redness recently developed yesterday around this area and is no streaking up his arm he will be treated with antibiotics. X-ray was obtained to rule out foreign body is patient initially felt a packing machine can feeder his right arm when this started. However no obvious foreign body on exam. Patient was started on Keflex and Bactrim given possible history of MRSA. He will follow-up with his primary care provider in one to 2 days. Educated that he may take about 24 hours to antibiotics but to begin working but then should improve. If this does not occur patient will return here to the emergency department. Disposition Clinical Impression: Contact dermatitis, Cellulitis Disposition: HOME SELF-CARE Condition: Good Instructions (If sedation given, give patient instructions): Lymphangitis (ED), Cellulitis (ED) Is patient prescribed a controlled substance at d/c from ED?: No Referrals: Osmel Schaeffer MD [Primary Care Provider] - 1-2 days Time of Disposition: 12:03
--- NOTE | 2019-06-15 12:39 | XR ---
EXAMINATION TYPE: XR forearm RT DATE OF EXAM: 06/15/2019 CLINICAL HISTORY: Puncture wound TECHNIQUE: 2 views of the right forearm. COMPARISON: None. FINDINGS: No fracture. No osseous destructive lesion. No radiopaque foreign body. IMPRESSION: No radiopaque foreign body.
== END 2019-06-15 12:21 | disposition home or self-care (01) ==
LOC: EC 11:26
DX: L03.113 Cellulitis of right upper limb (principal); R55 Syncope and collapse; W26.8XXA Contact with other sharp object(s), not elsewhere classified, initial encounter; Y93.89 Activity, other specified
CPT/HCPCS: 99283

== ENCOUNTER → 2021-09-30 | Outpatient (CLI) | payer BC ==
[~2021-09-30] MED LIST: BAMLANIVIMAB (EUA) 700 MG, ETESEVIMAB (EUA) 1,400 MG in SODIUM CHLORIDE 0.9% 50 ML IVPB NR; SODIUM CHLORIDE 0.9% 50 ML IVPB ONE; SODIUM CHLORIDE 0.9% 500 ML 500 ML in EMPTY BAG 1 BAG IV PRN
[2021-09-30 10:40] VITALS: BP 134/77; PULSE 71; RESP 16; TEMP 98.3
== END ==
LOC: PROCWHC3 10:11
PROVIDERS: ATTEND Internal Medicine Geriatric Medicine
DX: U07.1 COVID-19 (principal); E66.9 Obesity, unspecified; Z68.31 Body mass index [BMI] 31.0-31.9, adult